=== PATIENT | female | born 1960 | race Caucasian/White ===

== ENCOUNTER → 2016-09-01 | Day surgery (SDC) | payer OTHER ==
[~2016-09-01] VITALS: Ht 162.6 cm; Wt 102.1 kg
[~2016-09-01] MED LIST: ABILIFY10 M1 PO; ANASTROZOLE1 M1 PO; CLONAZEPAM1 M2 PO; CRESTOR10 M1 PO; LASIX20 M1 PO; LEVOTHYROXINE75 MCG PO; LYRICA75 M1 PO; SPIRONOLACTONE25 M1 PO; VENLAFAXINE HCL75 MG PO
--- NOTE | 2016-09-01 17:56 | Operative Report ---
Operative/Inv Procedure Report Surgery Date: 09/01/16 Name of Procedure: Fat grafting right breast following cancer surgery Pre-Operative Diagnosis: Asymmetry following breast cancer surgery with postoperative radiation right side Post-Operative Diagnosis: Same Estimated Blood Loss: scant Surgeon/Beam House Inspector: SHARLENE TAYLOR,MALIA Crump Anesthesia: laryngeal mask airway Operative/Procedure Note Note: Patient was counseled as to the procedure the alternatives risks and expected outcomes as relates to her request for surgical intervention to treat right- sided breast asymmetry with the right being small secondary breast cancer surgery and postoperative radiation. The patient would like an attempt at autologous reconstruction of the right via fat grafting technique. We talked about the risks including also the fact graft infection pain bleeding numbness and injury to abdominal wall structures and little deeper structures. Talked about changes in nipple sensation infection bleeding seroma once agreed to informed consent was signed. She was taken to the operating room after being marked in the standing position. She was placed supine on the table. Venodyne boots are placed and then general anesthesia was established and intravenous antibiotics were given. The abdomen and chest were prepped and draped in usual sterile fashion. Tumescent fluid was instilled through small stab incisions and fat was harvested. It was then processed and placed into the breast and the superficial cutaneous portions of truly releasing a scar. Fat was also placed within the pectoralis muscle very carefully. Approximately 180 mL was placed. Glue was placed at the incision locations. Ends dictation
== END ==
LOC: STS 01:29
DX: N65.1 Disproportion of reconstructed breast (principal); C50.911 Malignant neoplasm of unspecified site of right female breast; Z92.3 Personal history of irradiation; E03.9 Hypothyroidism, unspecified; M79.7 Fibromyalgia; Z87.891 Personal history of nicotine dependence
CPT/HCPCS: J0171; J0690; J2250

== ENCOUNTER → 2016-12-08 | Day surgery (SDC) | payer OTHER ==
[~2016-12-08] VITALS: Ht 165.1 cm; Wt 103.0 kg
--- NOTE | 2016-12-08 12:43 | Operative Report ---
Operative/Inv Procedure Report Surgery Date: 12/08/16 Name of Procedure: Fat grafting right breast Pre-Operative Diagnosis: Breast asymmetry with right-sided radiation and lumpectomy Post-Operative Diagnosis: Same Estimated Blood Loss: 50ml to 100ml Surgeon/Talent Acquisition Manager: SHARLENE TAYLOR,MALIA Crump Anesthesia: laryngeal mask airway Operative/Procedure Note Note: The patient was counseled regards of the procedure the alternatives the risks and expected outcomes as relates to her request for surgical intervention to treat right-sided breast asymmetry following breast radiation and previous lumpectomy leaving asymmetry and deformity. Liposuction donor site. We talked about the risks including injury to bowel intestines or underlying structures infection bleeding pain numbness and failure of the fat to remain in the right breast. She signed informed consent. She was taken to the operating room placed supine on the table. Venodyne boots are placed and then general anesthesia was established intravenous antibiotics were given. The right chest was prepped and draped in usual sterile fashion as well as the abdomen. Puncture site was made superior umbilicus and 1 L tumescent fluid was placed in the bilateral flanks. After appropriate amount of time liposuction was carried out. Partially-threaded 50 mL was removed. This was process and to 260 mL small stab incisions were made in the breast and fat was layered in from deep to superficial. Wounds were closed with sutures and group.
== END ==
LOC: STS 01:43
DX: N65.1 Disproportion of reconstructed breast (principal); Z85.3 Personal history of malignant neoplasm of breast; Z92.3 Personal history of irradiation; E03.9 Hypothyroidism, unspecified; E78.00 Pure hypercholesterolemia, unspecified
CPT/HCPCS: J0131; J0171; J0690; J1100; J2250; J2405